=== PATIENT | female | born 1950 | race African-American/Black ===

== ENCOUNTER 2023-06-22 03:32 | Emergency (ER) | payer MEDICARE, SELFPAY ==
[2023-06-22 03:44] VITALS: BP 176/81; PULSE 69; RESP 20; TEMP 36.8; O2SAT 99; BMI 36.0
--- NOTE | 2023-06-22 03:47 | DI.CT.S_ITS ---
PROCEDURE: CT HEAD/BRAIN WO CON INDICATIONS: L SCALP PAIN/SWELLING TECHNIQUE: Noncontrast 4.5 mm thick angled axial sections acquired from the foramen magnum to the vertex, with coronal and sagittal reformats. For radiation dose reduction, the following was used: automated exposure control, adjustment of mA and/or kV according to patient size. COMPARISON: None. FINDINGS: Image quality: Diagnostic. CSF spaces: Basal cisterns are patent. No extra-axial fluid collections. The ventricles are symmetric in size and shape. Brain: No intracranial bleeds or masses. There is cerebral volume loss for age, with resultant ventricular and sulcal prominence. There are periventricular and deep white matter chronic small vessel ischemic changes. There is intracranial internal carotid artery atherosclerosis. Skull and face: Calvarium and visualized facial bones appear intact, without suspicious lesions. Sinuses: Visualized sinuses are clear. Mild fluid is present in the left mastoid air cells. Recommend correlation potential symptoms of mastoiditis. IMPRESSION: 1. No acute intracranial process. 2. Mild to moderate atrophy and chronic microvascular ischemic changes. The above findings are concordant with preliminary report. Dictated by: Catrina Miranda M.D. on 06/22/2023 at 9:59 Approved by: Catrina Miranda M.D. on 06/22/2023 at 10:00
--- NOTE | 2023-06-22 03:47 | ED.HA ---
HPI - Headache General Chief Complaint: Headache Stated Complaint: Head pain Time Seen by Provider: 06/22/23 03:36 History of Present Illness HPI Narrative: 72yoF presents for evaluation of L scalp pain and swellign. Patient states that she has been treated by her primary care physician for left-sided neck and shoulder pain, which is gradually improving, however over the last 4-6 months she has noticed what feels like a swelling and crawling sensation over her L scalp. She states that the sensation was worse than normal today and prompted her to seek evaluation today. Her next PCP appointment isn't for 2 more months. Denies vertigo, numbness, weakness, hearing changes, other complaints at this time. Related Data Allergies Allergy/AdvReac Type Severity Reaction Status Date / Time No Known Drug Allergies Allergy Verified 06/22/23 03:49 Review of Systems Review of Systems Narrative: negative except as noted above Patient History Social History Smoking Status: Never smoker Exam Narrative Exam Narrative: Const: Awake, alert, no acute distress, nontoxic appearing Head: atraumatic, normocephalic, no visible lesions or abnormalities Eyes: PERRL, EOMI, conjunctiva normal Cardiac: regular rate, regular rhythm RESP: unlabored, clear bilaterally, no wheezing GI: Atraumatic, soft, nontender, nondistended, no rebound, no guarding Skin: Warm, Dry, intact, no rashes Neuro: AO x3, CN II-XII grossly intact, moves all extremities, gait normal Psych: affect normal, mood normal Initial Vital Signs Initial Vital Signs: Vital Signs Temperature 98.2 F 06/22/23 03:44 Pulse Rate 69 06/22/23 03:44 Respiratory Rate 20 06/22/23 03:44 Blood Pressure 176/81 H 06/22/23 03:44 Pulse Oximetry 99 06/22/23 03:44 Oxygen Delivery Method Room Air 06/22/23 03:44 Course Orders Ordered: ED Orders 06/22/23 03:47 CT head/brain wo con Stat Vital Signs Vital signs: Vital Signs - 8 hr 06/22/23 03:44 06/22/23 04:54 Temperature 98.2 F 97.4 F L Pulse Rate 69 65 Respiratory Rate 20 18 Blood Pressure 176/81 H 153/71 H Pulse Oximetry 99 96 Oxygen Delivery Method Room Air Room Air MDM - Headache MDM Narrative Medical decision making narrative: Well-appearing patient with nonspecific abnormal sensation in her left scalp. There is no physical exam abnormalities, the skin of the scalp is clear with no evidence of rash or fungal infection. Ears are clear and patient is neurologically intact. CT imaging of the brain shows benign left-sided tentorial calcifications, no other abnormal findings. Patient advised of CT findings. Counseled to call PCP office to see if she can move her appointment up from August to . ED return precautions discussed at bedside. Patient expressed understanding of the plan and is in agreement at this time. All questions answered at the time of discharge. Discharge Plan Departure Patient Disposition: Home Clinical Impression: Swelling of scalp Instructions: DI for Headache Referrals: Luis Alberto Ortega MD [Primary Care Provider] - Stand Alone Forms: Patient Portal/API
[2023-06-22 04:54] VITALS: BP 153/71; PULSE 65; RESP 18; TEMP 36.3; O2SAT 96
== END 2023-06-22 04:54 | disposition home or self-care (01) ==
PROVIDERS: Emergency Provider Emergency Medicine; PCP Family Medicine
DX: R22.0 Localized swelling, mass and lump, head (principal); R51.9 Headache, unspecified
CPT/HCPCS: 70450; 99281; 99284